=== PATIENT | male | born 1985 | race Hispanic/Latino ===

== ENCOUNTER 2018-11-24 11:35 | Day surgery (SDC) | payer BC, SELFPAY ==
[2018-11-24] MEDS ORDERED: Lidocaine 1% PF 5 ML VIAL ONE ×2 (11:45→12:09)
[2018-11-24] MEDS ORDERED: Adacel (T-DAP) 0.5 ML SYRINGE ONE (12:07)
[2018-11-24] MEDS ORDERED: Dexamethasone 20 MG/5 ML VIAL ONE (12:09)
[2018-11-24] MEDS ORDERED: PROPOFOL 200 MG/20 ML VIAL ONE (12:09)
--- NOTE | 2018-11-24 12:50 | RAD ---
INDEX FINGER LEFT HAND 3 VIEWS: HISTORY: Injury. FINDINGS/IMPRESSION: There is evidence of soft tissue amputation of the tip of the index finger. The tuft of the distal p halanx appears intact. No evidence of fracture or osseous abnormality identified. POS: OFF
[2018-11-24] MEDS ORDERED: Bupivacaine 0.5% 10 ML VIAL ONE (13:08)
[2018-11-24] MEDS ORDERED: CEFAZOLIN 1 GM VIAL ONE (13:28)
[2018-11-24 13:30] LABS: #Basophils 0.1 thou/uL (0.0-0.2); #Eosinphils 0.4 thou/uL (0.0-0.7); #Lymphocytes 1.9 thou/uL (1.20-3.40); #Monocytes 0.8 thou/uL (0.11-0.59); #Neutrophils 6.9 thou/uL (1.40-6.50); %Basophils 0.6 % (0.0-1.0); %Eosinophils 3.5 % (0.0-10.0); %Lymphocytes 19.1 % (21.0-51.0); %Monocytes 7.6 % (0.0-10.0); %Neutrophils 69.1 % (42.0-75.0); Hemoglobin 14.3 g/dL (14.0-18.0); Mean Corpuscular HGB CONC 33.8 g/dL (32.0-36.0); Mean Corpuscular Hemoglobin 28.4 pg (27.0-31.0); Mean Platelet Volume 8.5 fL (7.4-10.4); Platelet Count 196 thou/uL (130-400); Red Blood Cell (RBC) Count 5.03 mill/uL (4.70-6.10)
[2018-11-24 13:54] LABS: ALT (SGPT) 24 U/L (8-55); AST (SGOT) 22 U/L (5-34); Albumin 4.6 g/dL (3.5-5.0); Alkaline Phosphatase 62 U/L (40-150); Anion Gap 14 mmol/L (10-20); BUN (Urea Nitrogen) 10 mg/dL (8.9-20.6); Bilirubin, Total 0.4 mg/dL (0.2-1.2); Calc. Creatinine Clearance 0 mL/min (70-130); Calcium 9.3 mg/dL (7.8-10.44); Carbon Dioxide 22 mmol/L (22-29); Chloride 106 mmol/L (98-107); Estimated GFR-MDRD Greater than 90; Globulin 3.2 g/dL (2.4-3.5); Glucose 88 mg/dL (70-105); Potassium 4.1 mmol/L (3.5-5.1); Protein, Total 7.8 g/dL (6.0-8.3); Sodium 138 mmol/L (136-145)
[2018-11-24] MEDS ORDERED: Ondansetron PF 4 MG/2 ML Vial ONE (15:10)
[2018-11-24] MEDS ORDERED: Morphine 4 MG/ML VIAL ONE (15:10)
[2018-11-24] MEDS ORDERED: Bupivacaine PF 0.5% 30 ML VIAL ONE (17:32)
[2018-11-24] MEDS ORDERED: Bacitracin Zinc Ointment 30 gm TUBE ONE (17:32)
[2018-11-24] MEDS ORDERED: Thrombin 5000 UNITS/5 ML VIAL ONE (17:32)
[2018-11-24] MEDS ORDERED: Bupivacaine 0.25% HCL 30 ML VIAL ONE (17:32)
[2018-11-24] MEDS ORDERED: Sodium Chloride 0.9% 10 ML ONE (17:32)
[2018-11-24] MEDS ORDERED: Fentanyl 100 MCG/2 ML VIAL ONE (18:01)
[2018-11-24] MEDS ORDERED: Ketorolac Tromethamine 30 MG/ML VIAL ONE (20:10)
[2018-11-24] MEDS ORDERED: HYDROcodone/Acetaminophen 5/325 mg Tablet ONE (20:49)
--- NOTE | 2018-11-25 01:59 | OP ---
DATE OF PROCEDURE: 11/24/2018 PREOPERATIVE DIAGNOSES: 1. Left index finger open fracture distal phalanx with full-thickness skin loss. 2. Nailbed injury, left index finger. POSTOPERATIVE DIAGNOSES: 1. Left index finger open fracture distal phalanx with full-thickness skin loss. 2. Nailbed injury, left index finger. PROCEDURES PERFORMED: 1. Debridement of wound. 2. Debridement of open fracture. 3. Open treatment of nail bed injury with suture with chromic x1 and attaching it to the graft. 4. Full-thickness skin graft 2 x 1 cm harvest from the ipsilateral antecubital fossa. TOURNIQUET TIME: 42 minutes. ESTIMATED BLOOD LOSS: 5 mL or less. FINDINGS: 3 cm exposed bone with small fracture on the end of the tuft of the bone of the distal phalanx of the left index finger. DESCRIPTION OF PROCEDURE: After successful general endotracheal, the limb was prepped and draped. Time-out was done and the stated procedure matched the consented, marked, and history and physical area. We then exsanguinated the limb and inflated tourniquet to 250 mmHg pressure. We injected with 10 mL of 0.5% Marcaine, the base of the index finger metacarpophalangeal joint on both sides and in the antecubital fossa and anticipated site of the harvesting of the graft. We inspected the wound, inspected the bone, and found the wound edges were jagged and so was small mild fracture seen with loops on the end of a 3 mm exposed bone, distal tip of the phalanx of the distal bone. Thus, we resected rongeur as open treatment of fracture, debrided the open fracture, and then for the nail bed, the areas that were jagged, we excised and then we sutured them into a fat graft as part nail bed repair to stabilize the covered tip of the bone. This was done without undue tension. We then harvested a full-thickness skin graft 2 x 1 cm, deflated tourniquet, defatted the graft, closed the donor site with a running 4-0 Monocryl and Dermabond for epidermal closure. We then placed 4 bolster sutures to hold the graft down, running 5-0 chromic, including bringing the graft up well to cover the fat on the base of the nail and then circumferentially did the running 5-0 chromic. We placed a bacitracin under Adaptic under mineral oil soaked cotton ball and then I used the 4 sutures to tighten the bolster in effect. I then placed bulky dressing on both sites, and Kerlix and Leandro wraps from the distal arm all way to the wrist and from the wrist proximally used Coban to secure a well-padded Kerlix. The patient left the operating room without evidence of anesthetic or operative complications. Job ID: [id number]
== END 2018-11-24 21:03 | disposition home or self-care (01) ==
LOC: ERS 11:35 → SDC/OP 18:04
PROVIDERS: ATTEND Orthopaedic Surgery Hand Surgery
PROC: 0HREX73 Replacement of Left Lower Arm Skin with Autologous Tissue Substitute, Full Thickness, External Approach (ICD-10-PCS; principal; 2018-11-24)
PROC: 0PSV0ZZ Reposition Left Finger Phalanx, Open Approach (ICD-10-PCS; principal; 2018-11-24)
DX: S62.631B Displaced fracture of distal phalanx of left index finger, initial encounter for open fracture (principal); F17.210 Nicotine dependence, cigarettes, uncomplicated; F17.290 Nicotine dependence, other tobacco product, uncomplicated
CPT/HCPCS: 80053; 85025; 90715; J0690; J1100; J1885; J2001; J2270; J2405; J2704; J3010; J3490; S0020